=== PATIENT | female | born 1950 | race Caucasian/White ===

== ENCOUNTER 2017-05-09 02:17 | Inpatient (IN) | payer OTHER, MEDICARE ==
[~2017-05-09] VITALS: Ht 167.6 cm; Wt 90.7 kg
[~2017-05-09 02:17] MED LIST: AMITRIPTYLINE H10 M2 PO; BIOTIN2500 MCG PO; CITALOPRAM HBR20 MG PO; CLONAZEPAM0.5 M2 PO; CRESTOR20 M2 PO; DICLOFENAC SODI75 M2 PO; FERROUS SULFAT325 M3 PO; IBUPROFEN800 M1 PO; MULTIVITAMINS1 EAC9 PO; MYRBETRIQ25 M1 PO; OMEPRAZOLE40 M1 PO; TOPROL XL50 M1 PO; TRAMADOL HCL50 M1 PO; VITAMIN D250000 UNIT PO; ZOFRAN ODT4 M1 SL
--- NOTE | 2017-05-09 11:04 | Operative Report ---
Operative/Inv Procedure Report Surgery Date: 05/09/17 Name of Procedure: Left total knee arthroplasty with striker triathlon components Pre-Operative Diagnosis: Severe degenerative joint disease left knee Post-Operative Diagnosis: Severe degenerative joint disease left knee Estimated Blood Loss: 50ml to 100ml Surgeon/Food Service Cashier: Stacie HENDERSON,Josr DOWNING Anesthesia: block Implants: #5 posterior stabilized femur, #5 tibial baseplate, 11 mm polyethylene insert, 33 mm patellar implant Drains: One large Hemovac Specimens: Bone shavings sent to pathology Tourniquet: Tourniquet was inflated on the left thigh to pressure 350 mm tourniquet time was 109 minutes Condition: Stable when returned to the recovery room Operative Indication: This is a [age]-old lady who has had severe degenerative arthritis in the medial and patellofemoral compartments. She didn't manage conservatively with anti-inflammatories and injections however the conservative measures were no longer effective and she is admitted for a left total knee arthroplasty Operative/Procedure Note Note: After satisfactory spinal anesthetic was administered the left knee was prepped and draped in usual sterile fashion. A pneumatic tourniquet was placed above the knee and was inflated to pressure 350 mmHg. She received preoperative antibiotics as well as a dose of tranexamic acid A second pair of skilled hands was required for the successful outcome of this procedure Kingsin Truong a certified physician's assistant clinical nurse manager assisted in positioning, instrumentation and coagulation. His presence was required for the successful completion of this operation. His presence decreased the length of operative time in the associated comorbidities. The leg was exsanguinated with a sterile Esmarch. The tourniquet was inflated. A longitudinal incision was made and taken down through skin and subcutaneous tissue. Small bleeders were cauterized with the Bovie. A medial capsular incision was made and the patella was dislocated laterally. Medial and lateral meniscectomies were performed in the anterior cruciate ligament was removed. Osteophytes were removed from the tibia and patella as well as the femur. A drill hole was then made just anterior to the attachment of the anterior cruciate ligament into the femoral shaft. The long femoral alignment bro was then inserted into the shaft of the femur and the distal femoral cutting jig was assembled. The distal femoral cut was made and the femur was sized to a #5 component. Anterior, posterior and chamfer cuts were then made. The guide for the posterior stabilized knee was then inserted over the cut surface and a medial channel was made in the midportion of the femur to accept the posterior stabilized component. Attention was then turned to the tibia. A drill hole was made at the footprint of the anterior cruciate ligament and the long tibial guide bro was inserted into the tibia without difficulty. A 4 mm cut was made off the most affected medial side. This was then revised with an additional 2 mm cut. A #5 tibial baseplate afforded good coverage. A trial reduction was then performed with the tibia tibial and femoral components. A 11 mm insert afforded full extension and good medial and lateral ligaments balance. A curved osteotome was then used to remove large posterior osteophytes off the distal femur. The patella was then osteotomized and a #33 mm patellar insert was selected. It afforded good bony coverage but the patella required a lateral release to track properly. The trial components were then removed and the tibia was drilled to accept the fins of the tibial baseplate. Rotational alignment had been corrected. We copiously irrigated the knee with 2 L of pulsatile saline and the bone was then dried. A #5 tibial baseplate was cemented into place. Excess cement was removed with curettes. In similar fashion a #5 femoral component was then cemented into place and excess cement was removed. A trial polyethylene insert was then placed over the tibial baseplate and the knee was held in extension while the cement dried. This the patella was then cemented into place and held with a patellar clamp. After 15 minutes the knee was once again checked for any loose pieces of bone or cement. It was again copiously irrigated. A 33 mm polyethylene insert was then placed over the tibial baseplate. The patient had full extension and good medial and lateral ligaments balance. The patella tracked well. The knee was once again copiously irrigated. The deep capsular layer was closed with #1 Vicryl interrupted sutures. The subtenon's tissues closed with 2-0 Vicryl and the skin was closed with surgical pallavi. A drain was placed laterally and brought out through a stab wound. Blood loss was approximately 50 mL dry sterile dressings applied over the wound followed by light compressive dressing. The patient was returned to the recovery room in excellent condition. Tourniquet time was 109 minutes.
--- NOTE | 2017-05-09 13:03 | PN- Orthopedic ---
Subjective Subjective: Post op check Awake, alert Pain is well controlled at this time Denies nausea Has not ambulated with PT yet Objective Vital Signs and I&Os 112/64, HR 70 reg, RR 18, Sat 96%RA, temp 97.3 Physical Exam: VSS, afebrile hammonds: 600cc clear, yellow SHAQUILLE: 30cc bloody drainage General: alert and oriented times three Chest: clear anteriorly bilaterally, RRR Abd: soft, good bs Ext: warm, no edema, normosensate BLE, good 5/5 REMI BLE, no calf tenderness Wd: dressed, dry, ice pack in place SHAQUILLE in place, drainage as above On Q in place Current Medications: Current Medications Sig/Jamal Start time Last Medication Dose Route Stop Time Status Admin Acetaminophen 0 .STK-MED ONE 05/09 712 DC PO Acetaminophen 650 MG ONCE 05/09 0000 NR PO 05/09 235 Dexamethasone 0 .STK-MED ONE 05/09 711 DC .ROUTE Dexamethasone 10 MG ONCE 05/09 0000 NR IV 05/09 235 Gabapentin 0 .STK-MED ONE 05/09 712 DC PO Gabapentin 300 MG ONCE 05/09 0000 NR PO 05/09 235 Oxycodone HCl 0 .STK-MED ONE 05/09 712 DC PO Oxycodone HCl 10 MG ONCE 05/09 0000 NR PO 05/09 235 Ropivacaine 500 ML ONCE ONE 05/09 1115 AC ON-Q Ball 1 BAG INJ 05/12 0144 Scopolamine HBr 0 .STK-MED ONE 05/09 07 DC TOP Scopolamine HBr 1 PAT ONCE 05/09 0000 NR TOP 05/09 2358 Vancomycin HCl 1,500 MG ONCE 05/09 0000 NR Sodium Chloride 250 ML IV 05/09 2359 Assessment/Plan Assessment/Plan 67yo female s/p L TKR Pain management PT - WBAT knee precautions - only ambulate with assist eliquis for dvt ppx Ice to knee monitor SHAQUILLE On Q per anesthesia dc nasra in am Core Measures Venous Thromboembolism VTE Risk Factors Surgery No Mechanical VTE Prophylaxis d/t N/A MechProphylax Ordered No VTE Pharm Prophylaxis d/t NA PharmProphylax ordered
[2017-05-09 14:37] VITALS: BP 126/70
--- NOTE | 2017-05-09 14:37 | Patient Discharge Instructions ---
Discharge Instructions General Discharge Information You were seen/treated for: Left knee pain related to unilateral primary osteoarthritis You had these procedures: Left total knee replacement Watch for these problems: Increasing pain despite the use of pain medications. Increasing redness, warmth or swelling. Drainage of any type from incision. Inability to bear weight on left leg. Fever greater than 101.5 Do not soak the wound: Yes No bath, but you may shower: Yes Other wound care: Keep wound clean and dry. No lotions or ointments of any type on or near incision. No exceptions. No soaking wound for a minimum of 6 weeks unless otherwise indicated by Dr. Quinones Diet Continue normal diet: Yes Recommended Diet: Regular Activity Full Activity/No Limits: No Activity Self Limited: Yes Pounds, do NOT lift more than: 10 Activity Limited to: Weight bear as tolerated Acute Coronary Syndrome Inclusion Criteria At DC or during hospital stay patient has or had the following: ACS DIAGNOSIS No Discharge Core Measures Meds if any: Prescribed or Continued at Discharge Meds if any: NOT Prescribed or Continued at Discharge Congestive Heart Failure Inclusion Criteria At DC or during hospital stay patient has or had the following: CHF DIAGNOSIS No Discharge Core Measures Meds if any: Prescribed or Continued at Discharge Meds if any: NOT Prescribed or Continued at Discharge Cerebrovascular accident Inclusion Criteria At DC or during hospital stay patient has or had the following: CVA/TIA Diagnosis No Discharge Core Measures Meds if any: Prescribed or Continued at Discharge Meds if any: NOT Prescribed or Continued at Discharge Venous thromboembolism Inclusion Criteria VTE Diagnosis No VTE Type NONE VTE Confirmed by (Test) NONE Discharge Core Measures - Per Current guidelines, there needs to be overlap - treatment for the first 5 days of Warfarin therapy. - If discharged on Warfarin prior to 5 days of - overlap therapy, the patient will need to be - assessed for post discharge needs including - *Post discharge parental anticoagulation - *Warfarin and/or parental anticoagulation education - *Follow up date to check INR post discharge At least 5 days overlap therapy as Inpatient No Meds if any: Prescribed or Continued at Discharge Note: Overlap Therapy is Warfarin and Anticoagulant Meds if any: NOT Prescribed or Continued at Discharge
--- NOTE | 2017-05-09 14:39 | Admission Core Measures ---
Acute Coronary Syndrome (CM) ACS Core Measures Acute Coronary Syndrome Diagnosis No Congestive Heart Failure (NEW) CHF Core Measures Congestive Heart Failure Diagnosis No Cerebrovascular Accident (NEW) CVA Core Measures CVA/TIA Diagnosis No Venous Thromboembolism VTE Core Zenaida (View Protocol) VTE Risk Factors Surgery No Mechanical VTE Prophylaxis d/t N/A MechProphylax Ordered No VTE Pharm Prophylaxis d/t NA PharmProphylax ordered Problem List As ranked by this Provider includes Assessment & Plan 1. Primary osteoarthritis of left knee HOME MEDS Home Med List Amitriptyline HCl 10 MG TABLET 20 MG PO QHS SLEEP (Reported) Biotin 2,500 MCG CAPSULE 1 CAP PO DAILY SUPPLEMENT (Reported) Citalopram Hydrobromide (Citalopram HBr) 20 MG TABLET 1 TAB PO DAILY MENTAL HEALTH (Reported) Clonazepam 0.5 MG TABLET 1 TAB PO DAILY NEEDED PRN ANXIETY (Reported) Diclofenac Sodium 75 MG TABLET.DR 1 TAB PO Q12H PRN PAIN/INFLAMMATION ( Reported) Ergocalciferol (Vitamin D2) (Vitamin D2) 50,000 UNIT CAPSULE 1 CAP PO Q2W SUPPLEMENT- ON MONDAYS (Reported) Ferrous Sulfate 325 MG (65 MG IRON) TABLET 1 TAB PO D SUPPLEMENT (Reported) Ibuprofen 800 MG TABLET 1 TAB PO TID PRN pain Metoprolol Succ XL (Toprol Xl) 50 MG TAB 1 TAB PO DAILY HEART/BP (Reported) Mirabegron (Myrbetriq) 25 MG TAB.ER.24H 1 TAB PO DAILY BLADDER (Reported) Multiple Vitamin (Multivitamins) 1 EACH TABLET 1 TAB PO DAILY SUPPLEMENT ( Reported) Omeprazole 40 MG CAPSULE.DR 1 CAP PO BID GI (Reported) Rosuvastatin Calcium (Crestor) 20 MG TABLET 1 TAB PO DAILY CHOLESTEROL ( Reported)
--- NOTE | 2017-05-09 14:39 | Surgical Discharge Summary ---
Visit Information Visit Dates Admission Date: 05/09/17 Discharge Date: 05/13/2017 History of Present Illness Chief Complaint: Left knee pain related to unilateral primary osteoarthritis Medical History Neurological: HEADACHES EENT: cataracts Cardiovascular: hypertension Respiratory: NONE Gastrointestinal: GERD Hepatic: NONE Renal: NONE Musculoskeletal: ARTHRITIS Psychiatric: NONE Endocrine: NONE Blood Disorders: NONE Cancer(s): NONE Tetanus Vaccine: 05/04/12 Surgical History Pertinent Surgical History: none Psychosocial History What is Your Primary Language? South African Review of Systems: See H&P Hospital Course Course Attending Physician: Josr Quinones MD Primary Care Physician: Dajuan Gross MD Hospital Course: Patient was admitted to the hospital on 05/09/2017 for an elective left total knee replacement. She tolerated the procedure well and was transferred to a general surgical floor. Her diet was advanced and tolerated. She voided spontaneously. She was evaluated and treated by physical therapy. On 05/11 her drain was attempted to be removed at the bedside by the PA as well as the attending but it was unable to move and was felt to be incidently sutured in place. Therefore, consent was obtained and Ms Peres returned to the OR on 05/12 for the removal of her drain under anesthesea. She tolerated the procedure well and returned to her room. At the time of hospital discharge, her vital signs were stable and within normal limits, her neurovascular status was intact, and her pain was controlled with po pain medications. She was deemed appropriate for discharge. Allergies: Coded Allergies: Sulfa (Sulfonamide Antibiotics) (N/V/D 02/09/17) cefprozil (N/V/D 02/09/17) ciprofloxacin (From CIPRO) (N/V/D 02/09/17) erythromycin base (N/V/D 02/09/17) oxycodone (VIOLENTLY SICK 02/09/17) Significant Procedures: 05/09 L TKA - see operative report 05/12 L knee drain removal under anesthesia - see operative report Disposition Summary Disposition Principal Diagnosis: Left knee unilateral primary osteoarthritis Additional Diagnosis: None Discharge Disposition: SNF Discharge Instructions General Discharge Information Code Status: Full Code Patient's Diet: Regular, advance as tolerated Patient's Activity: WBAT Follow-Up Instructions/Appts: Follow up with Dr. Quinones in 2 weeks from date of surgery Medications at Discharge Discharge Medications: Stop taking the following medications: Diclofenac Sodium (Diclofenac Sodium) 75 MG TABLET.DR ORAL Q12H as needed for PAIN/INFLAMMATION Ibuprofen (Ibuprofen) 800 MG TABLET ORAL THREE TIMES DAILY as needed for pain Qty = 30 Continue taking these medications: Omeprazole (Omeprazole) 40 MG CAPSULE.DR 1 Capsule ORAL TWICE DAILY Metoprolol Succ XL (Toprol Xl) 50 MG TAB 1 Tablet ORAL DAILY Mirabegron (Myrbetriq) 25 MG TAB.ER.24H 1 Tablet ORAL DAILY Rosuvastatin Calcium (Crestor) 20 MG TABLET 1 Tablet ORAL DAILY Amitriptyline HCl (Amitriptyline HCl) 10 MG TABLET 20 Milligram ORAL TAKE AT BEDTIME Comments: PT STATES TAKES 20 MG Ergocalciferol (Vitamin D2) (Vitamin D2) 50,000 UNIT CAPSULE 1 Capsule ORAL EVERY 2 WEEKS Comments: PT STATES TAKES 50,000 UNITS 3 TIMES PER MONTH Multiple Vitamin (Multivitamins) 1 EACH TABLET 1 Tablet ORAL DAILY Citalopram Hydrobromide (Citalopram HBr) 20 MG TABLET 1 Tablet ORAL DAILY Biotin (Biotin) 2,500 MCG CAPSULE 1 Capsule ORAL DAILY Clonazepam (Clonazepam) 0.5 MG TABLET 1 Tablet ORAL DAILY NEEDED as needed for ANXIETY Ferrous Sulfate (Ferrous Sulfate) 325 MG (65 MG IRON) TABLET 1 Tablet ORAL Every Day Start taking the following new medications: Apixaban (Eliquis) 2.5 MG TABLET 2.5 Milligram ORAL TWICE DAILY Qty = 60 No Refills Hydromorphone HCl (Hydromorphone HCl) 2 MG TABLET 2-4 Milligram ORAL EVERY 4-6 HOURS NEEDED as needed for PAIN Qty = 36 No Refills Docusate Sodium (Docusate Sodium) 100 MG CAPSULE 100 Milligram ORAL TWICE DAILY as needed for CONSTIPATION Qty = 14 No Refills Copies To: Stacie HENDERSON,Josr Jorge; Renato HENDERSON,Dajuan Duvall
--- NOTE | 2017-05-09 14:42 | Surgical Discharge Summary ---
Visit Information Visit Dates Admission Date: 05/09/17 History of Present Illness Chief Complaint: L knee pain due to osteoarthritis. Medical History Neurological: HEADACHES EENT: cataracts Cardiovascular: hypertension Respiratory: NONE Gastrointestinal: GERD Hepatic: NONE Renal: NONE Musculoskeletal: ARTHRITIS Psychiatric: NONE Endocrine: NONE Blood Disorders: NONE Cancer(s): NONE Isolation History: Standard Tetanus Vaccine: 05/04/12 Surgical History Pertinent Surgical History: none Psychosocial History What is Your Primary Language? Tajik Review of Systems: See HPI Hospital Course Course Attending Physician: Josr Quinones MD Primary Care Physician: Dajuan Gross MD Hospital Course: The patient underwent a left total knee replacement by Dr. Quinones without complications. She was transferred to the floor shortly after the procedure. She received infectious prophylaxis with antibiotics and DVT prophylaxis. Her postoperative course was unremarkable, she was evaluated by physical therapy, she voided spontaneously, her pain was controlled, no signs of infection. she was discharged in stable condition Complications: None Allergies: Coded Allergies: Sulfa (Sulfonamide Antibiotics) (N/V/D 02/09/17) cefprozil (N/V/D 02/09/17) ciprofloxacin (From CIPRO) (N/V/D 02/09/17) erythromycin base (N/V/D 02/09/17) oxycodone (VIOLENTLY SICK 02/09/17) Disposition Summary Disposition Principal Diagnosis: Primary unilateral left knee osteoarthritis Additional Diagnosis: Status post left total knee arthroplasty Discharge Instructions General Discharge Information Code Status: Full Code Patient's Diet: Regular Patient's Activity: Ad francisco j. activity, physical therapy for total knee per protocol Follow-Up Instructions/Appts: Follow-up with Dr. Quinones in 2 weeks' time Physical therapy as outpatient , total knee replacement protocol Medications at Discharge Discharge Medications: Stop taking the following medications: Diclofenac Sodium (Diclofenac Sodium) 75 MG TABLET.DR ORAL Q12H as needed for PAIN/INFLAMMATION Ibuprofen (Ibuprofen) 800 MG TABLET ORAL THREE TIMES DAILY as needed for pain Qty = 30 Continue taking these medications: Omeprazole (Omeprazole) 40 MG CAPSULE.DR 1 Capsule ORAL TWICE DAILY Metoprolol Succ XL (Toprol Xl) 50 MG TAB 1 Tablet ORAL DAILY Mirabegron (Myrbetriq) 25 MG TAB.ER.24H 1 Tablet ORAL DAILY Rosuvastatin Calcium (Crestor) 20 MG TABLET 1 Tablet ORAL DAILY Amitriptyline HCl (Amitriptyline HCl) 10 MG TABLET 20 Milligram ORAL TAKE AT BEDTIME Comments: PT STATES TAKES 20 MG Ergocalciferol (Vitamin D2) (Vitamin D2) 50,000 UNIT CAPSULE 1 Capsule ORAL EVERY 2 WEEKS Comments: PT STATES TAKES 50,000 UNITS 3 TIMES PER MONTH Multiple Vitamin (Multivitamins) 1 EACH TABLET 1 Tablet ORAL DAILY Citalopram Hydrobromide (Citalopram HBr) 20 MG TABLET 1 Tablet ORAL DAILY Biotin (Biotin) 2,500 MCG CAPSULE 1 Capsule ORAL DAILY Clonazepam (Clonazepam) 0.5 MG TABLET 1 Tablet ORAL DAILY NEEDED as needed for ANXIETY Ferrous Sulfate (Ferrous Sulfate) 325 MG (65 MG IRON) TABLET 1 Tablet ORAL Every Day
[2017-05-09 17:18] VITALS: BP 120/80; BP 122/60
[2017-05-09 19:00] VITALS: BP 112/60
[2017-05-09 21:00] VITALS: BP 118/64
[2017-05-10 01:09] VITALS: BP 120/70
[2017-05-10 04:52] VITALS: BP 114/62
--- NOTE | 2017-05-10 07:25 | PN- Orthopedic ---
Subjective Subjective: Reports pain not well controlled overnight. Some improvement after dilaudid pills. Tolerating diet. No nausea. Denies dizziness. No shortness of breath. No chest pains. Anticipates out of bed with PT this morning. Objective Vital Signs and I&Os Vital Signs Date Time Temp Pulse Resp B/P B/P Pulse O2 O2 Flow FiO2 Mean Ox Delivery Rate 05/10 0452 98.0 81 20 114/62 93 Room Air 05/10 0109 98.4 88 20 120/70 94 Room Air 05/09 2100 98.1 77 20 118/64 95 Room Air 05/09 1900 98.0 86 20 112/60 94 Room Air 05/09 1718 97.5 92 19 120/80 94 Room Air 05/09 1437 98.0 82 18 126/70 95 Room Air Intake & Output 05/10 0800 05/10 0000 05/09 1600 05/09 0800 05/09 0000 05/08 1600 Intake Total 740 900 Output Total 1610 1350 Balance -870 -450 Intake, IV 500 600 Intake, Oral 240 300 Output, 160 150 Drainage Output, Urine 1450 1200 Patient 200 lb Weight Physical Exam: General - alert & oriented x 3. no acute distress. Lungs - clear bilaterally. no w/r/r. Cardiac - s1s2. reg. Abdomen - soft. nontender. - hammonds draining clear, yellow urine. Extremities - warm bilaterally. no c/c/e. left leg dressing c/d/i. ice pack over knee. on q device in place. calves soft and nontender b/l. nvi. hemovac drain emtpied 160 mls bloody drainage overnight Current Medications: Current Medications Sig/Jamal Start time Last Medication Dose Route Stop Time Status Admin Acetaminophen 650 MG Q4P PRN 05/10 0200 AC PO Acetaminophen 650 MG ONCE 05/09 0000 DC PO 05/09 235 Amitriptyline HCl 20 MG QPM 05/09 1500 AC 05/09 PO 2130 Apixaban 2.5 MG BID 05/10 1000 AC PO Atorvastatin Calcium 80 MG 1700 05/09 1700 AC 05/09 PO 1733 Citalopram 20 MG DAILY 05/10 1000 AC Hydrobromide PO Clonazepam 0.5 MG DAILY NEEDED PRN 05/09 1500 AC PO 05/16 1029 Dexamethasone 10 MG ONCE 05/09 0000 DC IV 05/09 2359 Dextrose/Lactated 1,000 ML Q13H 05/09 1500 DC 05/10 Ringer's IV 0443 Docusate Sodium 100 MG BID 05/09 2200 AC 05/09 PO 2130 Fentanyl Citrate 100 MCG .STK-MED ONE 05/09 0725 DC IM 05/09 0726 Gabapentin 300 MG ONCE 05/09 0000 DC PO 05/09 2359 Hydrocodone Bitart/ 1 TAB Q6P PRN 05/09 1500 DC Acetaminophen PO Hydrocodone Bitart/ 2 TAB Q6P PRN 05/09 1500 DC Acetaminophen PO Hydromorphone HCl 2 MG Q4P PRN 05/10 0200 AC 05/10 PO 0158 Hydromorphone HCl 4 MG Q4-PRN PRN 05/10 0200 AC 05/10 PO 0704 Metoprolol Succinate 50 MG DAILY 05/10 1000 AC PO Morphine Sulfate 2 MG Q3P PRN 05/09 1500 AC 05/10 IV 0008 Morphine Sulfate 4 MG Q3P PRN 05/09 1500 AC IV Omeprazole 40 MG BID 05/09 2200 AC 05/09 PO 2130 Ondansetron HCl 4 MG Q6P PRN 05/09 1500 AC IV Oxycodone HCl 10 MG ONCE 05/09 0000 DC PO 05/09 2359 Polyethylene Glycol 17 GM DAILY 05/09 1304 AC 05/09 PO 1732 Ropivacaine 500 ML ONCE ONE 05/09 1115 AC ON-Q Ball 1 BAG INJ 05/12 0144 Scopolamine HBr 1 PAT ONCE 05/09 0000 DC TOP 05/09 2359 Senna/Docusate Sodium 2 TAB AT BEDTIME NEED.. 05/09 1500 AC PO Vancomycin HCl 1,500 MG ONCE ONE 05/09 1900 DC 05/09 Sodium Chloride 250 ML IV 05/09 2028 195 Vancomycin HCl 1,500 MG ONCE 05/09 0000 DC Sodium Chloride 250 ML IV 05/09 2359 Assessment/Plan Assessment/Plan This 67 year old female with hx anxiety, htn, hld, manuel, POD#1 s/p left total knee replacement for severe degenerative joint disease left knee, hemovac drain emptied 160 mls overnight (11p-7a) tolerating diet. d/c iv fluids dilaudid 2-4 mg by mouth / iv morphine prn pain control on q increased from 8 to 14 d/c hammonds catheter f/u labs eliquis - dvt ppx PT eval ?d/c hemovac drain will d/w Core Measures Venous Thromboembolism VTE Risk Factors Surgery No Mechanical VTE Prophylaxis d/t N/A MechProphylax Ordered No VTE Pharm Prophylaxis d/t NA PharmProphylax ordered
[2017-05-10 08:48] LABS: ABSOLUTE BASOPHIL COUNT 0 /CUMM (0.0-0.2); ABSOLUTE EOSINOPHIL COUNT 0 /CUMM (0.0-0.7); ABSOLUTE GRANULOCYTE CT 10.3 /CUMM (1.4-6.5); ABSOLUTE LYMPH COUNT 0.6 /CUMM (1.2-3.4); ABSOLUTE MONOCYTE COUNT 0.8 /CUMM (0.10-0.60); BASOPHIL % 0.2 % (0.0-2.0); EOSINOPHIL % 0 % (0-5); HEMATOCRIT 36.6 % (37-47); MEAN CORPUSCULAR HGB 31.3 PG (27.0-31.0); MEAN CORPUSCULAR HGB CONC 33.7 G/DL (33.0-37.0); MEAN CORPUSCULAR VOLUME 92.9 FL (81.0-99.0); MEAN PLATELET VOLUME 9.8 FL (7.4-10.4); PLATELET COUNT 155 /CUMM (130-400); RBC DISTRIBUTION WIDTH 14.3 % (11.5-14.5); RED BLOOD CELL CT 3.95 /CUMM (4.20-5.40); WHITE BLOOD CELL COUNT 11.7 /CUMM (4.8-10.8)
[2017-05-10 10:07] LABS: GRANULOCYTE % 87.9 % (42.2-75.2)
[2017-05-10 10:22] VITALS: BP 118/68
[2017-05-10 14:13] VITALS: BP 120/78
[2017-05-10 18:16] VITALS: BP 120/70
--- NOTE | 2017-05-10 19:56 | PN- Orthopedic ---
Surgical Brief Attending Note Brief Attending Note: Leeanna is 24 hours status post left total knee arthroplasty. Her vital signs are stable. Neurologically she is intact. She was able to ambulate 60 feet today with the help of physical therapy. She still has a significant amount of discomfort in the knee but seems to be relatively well controlled with morphine. She is still draining from the Hemovac and we will keep it in for 24 hours and then discontinue it Saturday morning Her dressing is dry. Labwork today reveals potassium 4.0 hemoglobin of 12.4 hematocrit of 36.6. She has a bed reserved at [facility] and will be able to be discharged Saturday I will see her back in the office in 4 weeks or sooner if problems develop
[2017-05-11 07:19] VITALS: BP 134/70
--- NOTE | 2017-05-11 10:22 | PN- Student ---
Jose Pak 05/11/17 1012: Subjective Subjective: Leeanna is a 67 yo F post op day 2 s/p left total knee arthroplasty. Patient states she has 7/10 'deep' pain in her left knee/upper leg, which is an improvement since yesterday. Patient has been working with physical therapy and has been ambulating throughout the unit with assistance. She is tolerating regular diet, has + flatus but denies BM. Patient has SHAQUILLE tube in place with minimal serosanguinous fluid noted- emptied earlier this am. Patient would like to be discharged home tomorrow. Denies: H/A, vision changes, SOB, chest pain, N/V/D, paresthesias or syncope. Objective Objective: GENERAL: PT sitting upright in bed comfortably in NAD. A+Ox4, pleasant affect. RESP: Good respiratory effort. Mild rhonchi audible in left lower lobe, otherwise clear throughout. CARDIO: RRR, no MRG, S1/S2 audible. ABD: Soft, nontender, nondistended, tympanic upon percussion, loud normoactive bowel sounds audible throughout. MUSC: Left knee wrapped with MIKIE bandage, ice pack placed over dressing. One SHAQUILLE drain with minimal serosanguinous fluid in place. PT has full ROM and 5/5 strength in ankle/foot. Pedal pulses + 2 bilaterally. Compression devices in place on lower extremities bilaterally. Nontender, nonedematous. NEURO: Sensation intact throughout. Results Results: Laboratory Tests 05/10/17 0732: Anion Gap 12, Estimated GFR > 60, BUN/Creatinine Ratio 17.1, CBC w Diff NO MAN DIFF REQ, RBC 3.95 L, MCV 92.9, MCH 31.3 H, RDW 14.3, MPV 9.8, Gran % 87.9 H, Lymphocytes % 5.5 L, Monocytes % 6.4, Eosinophils % 0, Basophils % 0.2, Absolute Granulocytes 10.3 H, Absolute Lymphocytes 0.6 L, Absolute Monocytes 0.8 H, Absolute Eosinophils 0, Absolute Basophils 0, PUBS MCHC 33.7 Microbiology 05/09 0804 URINE ROUT: Urine Culture - RES Assessment/Plan Assessment: Leeanna is a 67 yo F POD2 s/p L total knee arthroplasty. Pt is recovering well from the procedure and is able to walk approximately 60 ft with mild discomfort. Pt likely has mucus plug contributing to rhonchi audible in left lower lobe. Patient is tolerating regular diet well, has audible bowel sounds and admits to passing flatus, but has yet to pass BM. Pt has no questions or concerns at this time. Plan: Continue regular diet. Continue docusate and polyethylene glycol. Continue pain medications as ordered- begin to switch to PO form for anticipated DC tomorrow. PT consult this am- encourage weight bearing exercises as tolerated/ambulation with assistance. Continue eliquis for DVT prophylaxis. Remove SHAQUILLE drain this am. Begin D/C orders for tomorrow. Follow up outpatient with Dr. Quinones. Madison DOWNING,[place] 05/11/17 1141: Subjective Subjective: pain at surgical site, no other complaints. oob w pt, ambulating in [place] Objective Objective: dressing dc'ed. incision cdi, some edema, ttp. SHAQUILLE w serosang drainage in bulb (approx 30cc), unable to remove SHAQUILLE despite force. left in place. +pedal pulses, gross sensation intact, +plantar/dorsiflexion. SHAQUILLE 70cc overnight, 75cc prior shift Results Results: CBC: pending Assessment/Plan Plan: AP: POD2, stable w expected postop pain. Concern re: SHAQUILLE drain and difficulty in removing. DW Dr. Stacy- will be in to assess later. Continue PT/WBAT, prn po pain meds, home meds, dc planning
[2017-05-11 12:47] LABS: ABSOLUTE BASOPHIL COUNT 0 /CUMM (0.0-0.2); ABSOLUTE EOSINOPHIL COUNT 0 /CUMM (0.0-0.7); ABSOLUTE GRANULOCYTE CT 8.4 /CUMM (1.4-6.5); ABSOLUTE LYMPH COUNT 0.8 /CUMM (1.2-3.4); ABSOLUTE MONOCYTE COUNT 0.8 /CUMM (0.10-0.60); BASOPHIL % 0.3 % (0.0-2.0); EOSINOPHIL % 0.5 % (0-5); GRANULOCYTE % 82.9 % (42.2-75.2); HEMATOCRIT 34.8 % (37-47); MEAN CORPUSCULAR HGB 30.6 PG (27.0-31.0); MEAN CORPUSCULAR HGB CONC 32.8 G/DL (33.0-37.0); MEAN CORPUSCULAR VOLUME 93.2 FL (81.0-99.0); MEAN PLATELET VOLUME 9.2 FL (7.4-10.4); PLATELET COUNT 162 /CUMM (130-400); RBC DISTRIBUTION WIDTH 14.3 % (11.5-14.5); RED BLOOD CELL CT 3.74 /CUMM (4.20-5.40); WHITE BLOOD CELL COUNT 10.1 /CUMM (4.8-10.8)
[2017-05-11 14:49] VITALS: BP 118/68
[2017-05-11] MEDS ORDERED: ELIQUIS2.5 M1 PO (15:03)
[2017-05-11] MEDS ORDERED: DOCUSATE SODIU100 M3 PO (15:03)
[2017-05-11] MEDS ORDERED: HYDROMORPHONE HC2 M1 PO (15:03)
--- NOTE | 2017-05-11 17:10 | RADIOLOGY REPORT ---
EXAMINATION: XR KNEE, LEFT CLINICAL INFORMATION: Status post total knee arthroplasty. COMPARISON: No direct comparisons. Left knee MRI 01/28/2016. TECHNIQUE: Two views of the left knee. FINDINGS: Status post total left knee arthroplasty. Hardware is well affixed and well aligned. Postoperative changes of patellar resurfacing. There is scattered subcutaneous gas and overlying surgical pallavi. Subcutaneous drain is noted laterally. IMPRESSION: 1. Well affixed and well aligned left total knee arthroplasty. 2. Expected postoperative changes as detailed above.
[2017-05-11 22:03] VITALS: BP 108/64
[2017-05-12 06:59] VITALS: BP 142/88
--- NOTE | 2017-05-12 09:34 | Operative Report ---
Operative/Inv Procedure Report Surgery Date: 05/12/17 Name of Procedure: Removal of implant deep left knee Pre-Operative Diagnosis: Retained drain left knee status post left total knee arthroplasty Post-Operative Diagnosis: Same Estimated Blood Loss: less than 50ml Surgeon/Mold Stamper: ALBA Anesthesia: laryngeal mask airway IV Fluids: See anesthesia record Implants: None Drains: None Specimens: Drain segment to pathology Complications: None Condition: Stable Operative Indication: Patient's 67-year-old female who underwent left total knee arthroplasty 3 days ago. When the physician assistants attempted to remove the drain on the floor yesterday it was not able to be removed. I tried myself yesterday on the floor. It seems that the drain had been sewn in place excellently.she was indicated for removal of the drain under anesthesia. Operative/Procedure Note Note: Once informed consent was obtained the correct was then applied patient was brought to operative room placed on table supine position. After administration of general endotracheal anesthesia the left lower extremity is prepped and draped usual sterile fashion. Again procedure the incision was opened on the proximal one third of the total knee incision. [place] removed and passed off. Sutures removed and passed off. The arthrotomy sutures on the most proximal aspect removed and passed off. The drain was found and it was found that there was a suture that had accidentally been placed right through the drain. This was released and the drain tube was removed. The knee was then copiously irrigated with sterile saline solution. The arthrotomy is closed #1 Vicryl interrupted sutures. The subcutaneous tissues closed with #1 Vicryl and 2-0 Vicryl inverted sutures and the skin was closed with pallavi. The patient was awakened taken recovery in stable condition.
[2017-05-12 13:58] VITALS: BP 122/70
--- NOTE | 2017-05-12 14:19 | PN- Orthopedic ---
Subjective Subjective: poc s/p removal of retained drain after tka resting comfortably no major complaints Objective Vital Signs and I&Os Vital Signs Date Time Temp Pulse Resp B/P B/P Pulse O2 O2 Flow FiO2 Mean Ox Delivery Rate 05/12 1358 98.2 80 20 122/70 96 Room Air 05/12 1044 146/80 05/12 0659 98.2 82 18 142/88 94 Room Air 05/11 2203 98.1 84 16 108/64 94 Room Air 05/11 1449 98.7 98 20 118/68 98 Intake & Output 05/12 1600 05/12 0800 05/12 0000 05/11 1600 05/11 0800 05/11 0000 Intake Total 696 900 50 600 Output Total 500 680 20 75 70 675 Balance -500 16 880 -75 -20 -75 Intake, IV 546 0 Intake, Oral 150 900 50 600 Number 0 0 Bowel Movements Output, 30 20 75 70 75 Drainage Output, Urine 500 650 600 Physical Exam: cv: rrr lungs: clear abd: soft, +bs ext: drsg dry distal cms intact Assessment/Plan Assessment/Plan ortho stable plan resume pre surgical regime plan for snf tomorrow Core Measures Venous Thromboembolism VTE Risk Factors Surgery No Mechanical VTE Prophylaxis d/t N/A MechProphylax Ordered No VTE Pharm Prophylaxis d/t NA PharmProphylax ordered
[2017-05-12 22:20] VITALS: BP 128/57
--- NOTE | 2017-05-13 07:04 | PN- Orthopedic ---
Subjective Subjective: Awake, alert No complaints this morning Knee feels stiff but pain is well controlled Denies nausea, ambulating with PT and rolling walker No BM yet Objective Vital Signs and I&Os Vital Signs Date Time Temp Pulse Resp B/P B/P Pulse O2 O2 Flow FiO2 Mean Ox Delivery Rate 05/13 0708 97.9 82 20 128/70 94 Room Air 05/13 0010 93 Room Air 05/13 0000 93 Room Air 05/12 2220 98.2 76 20 128/57 96 05/12 1600 Nasal 1.0L Cannula 05/12 1358 98.2 80 20 122/70 96 Room Air 05/12 1044 146/80 Intake & Output 05/13 0800 05/13 0000 05/12 1600 05/12 0800 05/12 0000 05/11 1600 Intake Total 200 940 800 696 900 Output Total 500 400 900 680 20 75 Balance -300 540 -100 16 880 -75 Intake, IV 200 800 800 546 Intake, Oral 0 140 150 900 Number 0 0 Bowel Movements Output, 30 20 75 Drainage Output, Urine 500 400 900 650 Physical Exam: vss, afebrile General: alert and oriented times three Chest: clear anteriorly Abd: soft Ext: warm, normosensate BLE, 5/5 REMI BLE Wd: dressed, dry, ice pack in place Assessment/Plan Assessment/Plan 67yo female pod 4 s/p L TKR, pod 1 s/p L knee drain removal under anesthesia Continue PT - WBAT Pain management DC to str today dressing change beginning tomorrow - daily dry dressing change eliquis for dvt ppx bowel regimen - dulcolax added today Core Measures Venous Thromboembolism VTE Risk Factors Surgery No Mechanical VTE Prophylaxis d/t N/A MechProphylax Ordered No VTE Pharm Prophylaxis d/t NA PharmProphylax ordered
[2017-05-13 07:08] VITALS: BP 128/70
[2017-05-13 10:30] LABS: ABSOLUTE BASOPHIL COUNT 0 /CUMM (0.0-0.2); ABSOLUTE EOSINOPHIL COUNT 0.3 /CUMM (0.0-0.7); ABSOLUTE GRANULOCYTE CT 6.4 /CUMM (1.4-6.5); ABSOLUTE LYMPH COUNT 1.1 /CUMM (1.2-3.4); ABSOLUTE MONOCYTE COUNT 0.6 /CUMM (0.10-0.60); BASOPHIL % 0.3 % (0.0-2.0); EOSINOPHIL % 3.6 % (0-5); GRANULOCYTE % 76.6 % (42.2-75.2); HEMATOCRIT 32.7 % (37-47); MEAN CORPUSCULAR HGB 30.9 PG (27.0-31.0); MEAN CORPUSCULAR HGB CONC 33.4 G/DL (33.0-37.0); MEAN CORPUSCULAR VOLUME 92.5 FL (81.0-99.0); MEAN PLATELET VOLUME 8.8 FL (7.4-10.4); PLATELET COUNT 213 /CUMM (130-400); RED BLOOD CELL CT 3.54 /CUMM (4.20-5.40); WHITE BLOOD CELL COUNT 8.3 /CUMM (4.8-10.8)
[2017-05-13 13:50] VITALS: BP 128/70
[2017-05-13 14:24] VITALS: BP 110/75
== END 2017-05-13 15:20 | DRG 470 ==
LOC: 2NA 02:17 → SDA 02:17 → ENRESERV 13:40 → ENTRNSPT 14:14 → 2NA 14:30 → EDTRNSPTSTS 14:32 → EDTRNSPT 14:32 → CMPTRNSPT 14:38 → ENTRNSPT 05-12 10:18 → EDTRNSPT 05-12 10:21 → EDTRNSPTSTS 05-12 10:21 → CMPTRNSPT 05-12 10:32 → ENPENDDIS 05-13 07:35 → 2NA 05-13 07:58
PROVIDERS: Physician Assistant Surgical; Student in an Organized Health Care Education/Training Program
PROC: 0SRD0JZ Replacement of Left Knee Joint with Synthetic Substitute, Open Approach (ICD-10-PCS; principal; 2017-05-09)
PROC: 0YP Anatomical Regions, Lower Extremities, Removal (ICD-10-PCS; 2017-05-12)
DX: M17.12 Unilateral primary osteoarthritis, left knee (principal); E78.5 Hyperlipidemia, unspecified; I10 Essential (primary) hypertension; T85.898A Other specified complication of other internal prosthetic devices, implants and grafts, initial encounter; Y83.9 Surgical procedure, unspecified as the cause of abnormal reaction of the patient, or of later complication, without mention of misadventure at the time of the procedure; Y92.234 Operating room of hospital as the place of occurrence of the external cause; K21.9 Gastro-esophageal reflux disease without esophagitis; G47.33 Obstructive sleep apnea (adult) (pediatric); F41.9 Anxiety disorder, unspecified; F32.9 Major depressive disorder, single episode, unspecified
CPT/HCPCS: 2NAP; 36415; 73560-LT; 82436; 87086; 88305; 97110-GO; 97116-GO; 97161-GP; 97530-GO; C1713; C9399; J0131; J1100; J2405; J2795; J3370; J7040